=== PATIENT | male | born 1990 | race Caucasian/White ===

== ENCOUNTER 2018-01-20 16:24 | Emergency (ER) | payer OTHER ==
[2018-01-20 16:33] VITALS: BP 141/94
--- NOTE | 2018-01-20 17:11 | EDPHY ---
H & P Time Seen by Provider: 01/20/18 16:37 HPI/ROS: CHIEF COMPLAINT: Right foot pain. HISTORY OF PRESENT ILLNESS: Patient is a 18-year-old male who presents emergency department with right foot pain. Patient has had pain and swelling at the ball of his foot for the past year. He saw [facility] and had them train this with a needle. Improved briefly but now he has increasing pain. He describes moderate discomfort. It is worse with walking. No fevers or chills. REVIEW OF SYSTEMS: My complete review of systems is negative except as mentioned in the HPI. Past Medical/Surgical History: Hyperlipidemia Smoking Status: Never smoked Physical Exam: Vitals noted. 37.5 GENERAL: Well-appearing, in no acute distress, alert. HEENT: Eyes normal to inspection. RESPIRATORY: Clear to auscultation bilaterally, no rales, rhonchi or wheezing. CVS: Regular rate and rhythm, no rubs, murmurs, or gallops. ABDOMEN: Soft, nontender, nondistended, no organomegaly. SKIN: Normal color, no rash, warm, dry. No pallor. EXTREMITIES: [The patient has a small bruising of the right ball of his foot. This is mildly tender to palpation. It is 5 mm in diameter. There is no surrounding erythema or warmth. No streaking up the leg.. NEURO/PSYCH: Alert and oriented, normal mood and affect, normal motor sensory exam. Constitutional: Initial Vital Signs Temperature (C) 37.5 C 01/20/18 16:30 Heart Rate 74 01/20/18 16:30 Respiratory Rate 16 01/20/18 16:30 Blood Pressure 141/94 H 01/20/18 16:30 O2 Sat (%) 97 01/20/18 16:30 O2 Delivery Mode Room Air Allergies/Adverse Reactions: No Known Allergies Allergy (Unverified 01/20/18 16:30) Medical Decision Making ED Course/Re-evaluation: In the emergency department I discussed possible etiologies with the patient. I answered all his questions. I recommended drainage of the site. Procedure at: I&D The procedure consented to I&D of his right ft. Patient was anesthetized with 1 % lidocaine. Using sterile procedure an 11 blade was used to incise into the fluctuance site. Moderate Red/whitish colored discharge. Bacitracin was placed on the wound. The patient was given precautions. He will follow up his prior care physician. He was given follow-up with Podiatry. quill machine tender was used for all interactions. Differential Diagnosis: My differential includes but is not limited to cyst, abscess, cellulitis. The patient does not appear septic or toxic. I did note his temperature was 37.5 degrees but he appeared well. Departure - Departure Disposition: Home, Routine, Self-Care Clinical Impression: Other cyst of bone, unspecified ankle and foot Condition: Good Instructions: Abscess (ED) Additional Instructions: Return with increasing pain, redness, fever or any other concerns. Referrals: Sandra Jack PA [Primary Care Provider] - 2-3 days, if not improved Duc Sorensen DPM [Doctor of Podiatric Medicine] - 5-7 days, if not improved
== END 2018-01-20 17:27 | disposition home or self-care (01) ==
PROC: 0H9MXZZ Drainage of Right Foot Skin, External Approach (ICD-10-PCS; principal; 2018-01-20)
DX: M85.671 Other cyst of bone, right ankle and foot (principal)